=== PATIENT | female | born 1940 | race Caucasian/White ===

== ENCOUNTER 2020-09-08 17:43 | Emergency (ER) | payer OTHER ==
[2020-09-08 18:13] VITALS: BP 144/99; PULSE 82; BMI 24.1
[2020-09-08 20:38] LABS: BASO % 1.1 % (0-2.0); EOS % 4.2 % (0-4.5); HEMATOCRIT 38.3 % (32.4-45.2); HEMOGLOBIN 12.3 GM/dL (10.7-15.3); LYMPH % 26.4 % (8-40); MCH 28.1 pg (25.7-33.7); MCHC 32.1 g/dl (32.0-36.0); MEAN CELL VOLUME 87.4 fl (80-96); MEAN PLT VOLUME 9.4 fl (7.5-11.1); MONO % 11.8 % (3.8-10.2); NEUT % 56.5 % (42.8-82.8); PLATELET COUNT 278 K/MM3 (134-434); RBC 4.37 M/mm3 (3.60-5.2); RDW 14.4 % (11.6-15.6); WHITE BLOOD COUNT 6.4 K/mm3 (4.0-10.0)
[2020-09-08 20:57] LABS: POTASSIUM 4.3 mmol/L (3.5-5.1)
[2020-09-08 20:59] LABS: CALCIUM 9.2 mg/dL (8.5-10.1)
[2020-09-08 21:00] LABS: ALBUMIN 3.5 g/dl (3.4-5.0); BLOOD UREA NITROGEN 21.1 mg/dL (7-18)
[2020-09-08 21:02] LABS: CREATININE 1.1 mg/dL (0.55-1.3)
[2020-09-08 21:04] LABS: BILIRUBIN,TOTAL 0.4 mg/dL (0.2-1); TOT PROT 6.9 g/dl (6.4-8.2)
[2020-09-08 21:08] LABS: N-TERMINAL BNP 428.8 pg/ml (5-450)
[2020-09-08 22:53] LABS: EPI CELLS 35 /uL (0-25.1); HYALINE CASTS 4 /uL (0-3.1); PH,URINE 5.5 (5.0-8.0); URINE APPEARANCE CLEAR; URINE BACTERIA 120 /uL (0-1359); URINE BILIRUBIN NEGATIVE (NEGATIVE); URINE COLOR YELLOW; URINE GLUCOSE (UA) NEGATIVE (NEGATIVE); URINE KETONE TRACE (NEGATIVE); URINE LEUK ESTERASE 1+ (NEGATIVE); URINE NITRITE NEGATIVE (NEGATIVE); URINE PROTEIN TRACE (NEGATIVE); URINE RBC 6 /uL (0-23.9); URINE WBC 51 /uL (0-25.8)
== END 2020-09-08 23:58 | disposition home or self-care (01) ==
LOC: JER 17:43
DX: R60.0 Localized edema (principal)
CPT/HCPCS: 36415; 71045-TC-FY; 80053; 81003; 83880; 85025; 93005; 93010; 93926-TC; 93971-TC; 99285-25